=== PATIENT | female | born 1995 | race Caucasian/White ===

== ENCOUNTER 2018-04-17 16:29 | Emergency (ER) | payer OTHER ==
[~2018-04-17] VITALS: Ht 157.5 cm; Wt 72.6 kg
[2018-04-17 16:32] VITALS: BP 152/94
[2018-04-17] MEDS ORDERED: TDAP [DIPH/PERTUSSIS/TET] 0.5 ML VIAL IM ONE ×2 (17:00→17:30)
[2018-04-17] MEDS ORDERED: LIDOCAINE HCL/PF 1% 30 ML VIAL IM ONE (17:30)
--- NOTE | 2018-04-17 17:56 | NUR ---
LAC REPAIR DONE. PT PROVIDED W/ WOUND CARE.
[2018-04-17] MEDS ORDERED: IBUPROFEN 600 MG TABLET PO ONE ×2 (18:30→18:36)
== END 2018-04-17 18:41 | disposition home or self-care (01) ==
LOC: ER 16:31
DX: S61.210A Laceration without foreign body of right index finger without damage to nail, initial encounter (principal); J45.909 Unspecified asthma, uncomplicated; Z23 Encounter for immunization; W25.XXXA Contact with sharp glass, initial encounter; Y93.89 Activity, other specified; Y92.89 Other specified places as the place of occurrence of the external cause; Y99.0 Civilian activity done for income or pay
CPT/HCPCS: 12002; 73140; 90471; 90715; 99284; A4606; A6402; A6403; Z7610

== ENCOUNTER 2018-04-21 13:00 | Emergency (ER) | payer OTHER ==
[~2018-04-21] VITALS: Ht 157.5 cm; Wt 70.3 kg
[2018-04-21 13:00] VITALS: BP 131/75
== END 2018-04-21 13:27 | disposition home or self-care (01) ==
LOC: ER 13:03
DX: S61.210D Laceration without foreign body of right index finger without damage to nail, subsequent encounter (principal); J45.909 Unspecified asthma, uncomplicated; W26.9XXD Contact with unspecified sharp object(s), subsequent encounter
CPT/HCPCS: 99281; A4606; Z7610; Z7502

== ENCOUNTER 2018-04-27 13:11 | Emergency (ER) | payer MEDICAID, OTHER ==
[~2018-04-27] VITALS: Ht 157.5 cm; Wt 73.5 kg
[2018-04-27 13:16] VITALS: BP 121/83
[2018-04-27] MEDS ORDERED: BENZOIN COMPOUND TINCT 60 ML BOTTLE ONE (13:45)
== END 2018-04-27 14:06 | disposition home or self-care (01) ==
LOC: ER 13:15
DX: T81.30XD Disruption of wound, unspecified, subsequent encounter (principal); J45.909 Unspecified asthma, uncomplicated; X58.XXXD Exposure to other specified factors, subsequent encounter
CPT/HCPCS: A4606; Z7610